=== PATIENT | female | born 1965 | race Caucasian/White ===

== ENCOUNTER 2016-07-26 16:44 | Emergency (ER) | payer MEDICARE, MEDICAID ==
[~2016-07-26 16:44] MED LIST: 'PARAFON FORTE500 M1 PO; ABILIFY10 MG PO; ALEVE220 MG PO; AMBIEN10 MG PO; AMBIEN5 MG PO; ANAPROX DS550 MG PO; ATIVAN0.5 MG PO; BACTRIM DS 8001 TA1 PO; BD ALCOHOL1 SWA TP; BUPROPION HCL150 MG PO; BUPROPION HCL75 MG PO; CATAFLAM50 MG PO; CLARITIN10 MG PO; CYANOCOBAL1000 MCG/M SC; CYCLOBENZAPRINE10 MG PO; CYMBALTA60 MG PO; DAYPRO600 M1 PO; EFFEXOR37.5 MG PO; EFFEXOR50 MG PO; EFFEXOR75 MG PO; FIORICET 325 MG1 TAB PO; FLAGYL500 M1 PO; FLAGYL500 MG PO; FLEXERIL10 MG PO; FLEXERIL5 MG PO; HYDROCODONE BIT1 T11 PO; IBU800 MG PO; KEFLEX500 MG PO; KLONOPIN1 MG PO; LEVOFLOXACIN500 MG PO; LOMOTIL 0.025 M1 TA1 PO; LOPRESSOR50 M1 PO; LOPRESSOR50 MG PO; LORAZEPAM2 MG PO; MACROBID100 M1 PO; MEDROL DOSEPAK4 MG PO; METOPROLOL SUCC50 M1 PO; METOPROLOL100 MG PO; METOPROLOL50 MG PO; MIDRIN (DURADR1 CAP PO; MOTRIN800 MG PO; NAPROSYN500 MG PO; NORCO 325 MG-51 TAB PO; PREDNISONE10 MG PO; PRILOSEC40 MG PO; PROPRANOLOL HCL60 M1 PO; REMERON15 MG PO; RESTORIL30 MG PO; RESTORIL7.5 MG PO; ROBAXIN750 MG PO; SOMA350 MG PO; TOPAMAX50 MG PO; TOPROL XL50 MG PO; TRAMADOL HCL50 MG PO; TRAMADOL HYDROC50 MG PO; TYLENOL W/ CODE1 TAB PO; TYLENOL500 MG PO; ULTRAM50 MG PO; VENLAFAXINE HY PO; VICODIN 5/500 505 MG PO; VICODIN 500 MG-1 TAB PO; VICODIN ES 7501 TAB PO; WELLBUTRIN75 MG PO; ZANTAC150 MG PO; ZITHROMAX Z PA250 MG PO; ZOFRAN ODT4 MG PO; ZOFRAN ODT4 MG SL; ZOFRAN4 MG PO; Zofran4 MG PO; [UNRECOGNIZED DRUG - OTHER] PO
[2016-07-26] MEDS ORDERED: HYDROCODONE BIT1 T11 PO (17:11)
[2016-07-26] MEDS ORDERED: PREDNISONE10 MG PO (17:11)
[2016-08-15] MEDS ORDERED: MIRTAZAPINE30 M2 PO (18:38)
[2016-08-15] MEDS ORDERED: DOXYCYCLINE100 M3 PO (18:40)
[2016-08-15] MEDS ORDERED: DIAZEPAM5 MG PO (18:40)
[2016-08-15] MEDS ORDERED: GABAPENTIN TAB600 MG PO (18:41)
[2016-08-15] MEDS ORDERED: Motrin,Rufen800 MG PO (19:53)
== END 2016-07-26 17:13 | disposition home or self-care (01) ==
LOC: ED 16:44
DX: M54.42 Lumbago with sciatica, left side (principal); Z98.51 Tubal ligation status; Z90.710 Acquired absence of both cervix and uterus; Z98.890 Other specified postprocedural states

== ENCOUNTER 2016-10-26 22:18 | Inpatient (IN) | payer MEDICARE ==
[~2016-10-26] VITALS: Ht 162.5 cm; Wt 92.1 kg
[~2016-10-26 22:18] MED LIST changes: +DIAZEPAM5 MG PO; +DOXYCYCLINE100 M3 PO; +GABAPENTIN TAB600 MG PO; +MIRTAZAPINE30 M2 PO; +Motrin,Rufen800 MG PO
[2016-10-26 22:39] VITALS: BP 127/88
[2016-10-26 23:11] LABS: BASO % 0.4 % (0.0-1.0); EOS # 0.2 10*3/uL (0.0-0.4); EOS % 2.2 % (1.0-4.0); HEMATOCRIT 39.1 % (37.0-47.0); HEMOGLOBIN 12.8 g/dl (12.0-16.0); LYMPH # 3.9 10*3/uL (1.3-4.4); LYMPH % 40.1 % (27.0-41.0); MEAN CELL VOLUME 92.7 fl (81.0-99.0); MEAN CORPUSCULAR HGB 30.3 pg (27.0-31.0); MEAN CORPUSCULAR HGB CONC 32.7 g/dl (33.0-37.0); MEAN PLATELET VOLUME 9.7 fl (9.6-12.3); MONO # 0.6 10*3/uL (0.1-1.0); MONO % 5.9 % (3.0-9.0); NEUT % 51.3 % (47.0-73.0); PLATELET COUNT AUTOMATED 273 10*3/uL (130-400); RED BLOOD COUNT 4.22 10*6/uL (4.10-5.10); RED CELL DISTRI WIDTH 12.9 % (0-14.5); WHITE BLOOD COUNT 9.7 10*3/uL (4.8-10.8)
[2016-10-26 23:26] LABS: ALBUMIN 3.3 gm/dl (3.1-4.5); ALKALINE PHOSPHATASE 146 U/L (45-117); BILIRUBIN, TOTAL 0.1 mg/dl (0.2-1.0); BUN 19 mg/dl (7-24); C-REACTIVE PROTEIN 0.85 MG/DL (0-0.3); CARBON DIOXIDE 26 mmol/L (21-32); CHLORIDE 107 mmol/L (98-107); EST GLOM FILT AFRICAN AMERICAN > 60 ml/min; GLUCOSE 108 mg/dL (65-99); MAGNESIUM 2.2 mg/dL (1.5-2.1); POTASSIUM 4.2 mmol/L (3.5-5.1); SGOT/AST 26 IU/L (3-35); SGPT/ALT 35 U/L (12-78); SODIUM 141 mmol/L (136-145); TOTAL PROTEIN 7.4 gm/dL (6.4-8.2)
[2016-10-27 02:30] VITALS: BP 120/80
[2016-10-27] MEDS ORDERED: REXULTI1 MG PO (04:37)
[2016-10-27 08:00] VITALS: BP 106/72
[2016-10-27 12:00] VITALS: BP 106/73
[2016-10-27 13:17] LABS: BILIRUBIN NEGATIVE (NEGATIVE); BLOOD 1+ (NEGATIVE); CLARITY SL CLOUDY (CLEAR); COLOR YELLOW (YELLOW); GLUCOSE NEGATIVE (NEGATIVE); KETONE NEGATIVE (NEGATIVE); LEUKO ESTERASE TRACE (NEGATIVE); NITRITE NEGATIVE (NEGATIVE); PROTEIN NEGATIVE (NEGATIVE); UROBILINOGEN 0.2 E.U./dl (0.2-1.0)
[2016-10-27 13:29] LABS: BACTERIA 1+; URINE REFLEX COMMENT YES (NO); WBC 0-2 wbc/hpf (0-5)
[2016-10-27 16:00] VITALS: BP 101/70
[2016-10-27 20:00] VITALS: BP 102/53
[2016-10-28] VITALS: BP 110/50
[2016-10-28 07:08] LABS: BASO % 0.6 % (0.0-1.0); EOS # 0.2 10*3/uL (0.0-0.4); EOS % 3.2 % (1.0-4.0); HEMATOCRIT 38.2 % (37.0-47.0); HEMOGLOBIN 12.3 g/dl (12.0-16.0); LYMPH # 2.7 10*3/uL (1.3-4.4); LYMPH % 37.7 % (27.0-41.0); MEAN CELL VOLUME 95.7 fl (81.0-99.0); MEAN CORPUSCULAR HGB 30.8 pg (27.0-31.0); MEAN CORPUSCULAR HGB CONC 32.2 g/dl (33.0-37.0); MEAN PLATELET VOLUME 9.9 fl (9.6-12.3); MONO # 0.4 10*3/uL (0.1-1.0); MONO % 5.1 % (3.0-9.0); NEUT # 3.9 10*3/uL (2.3-7.9); NEUT % 53.3 % (47.0-73.0); PLATELET COUNT AUTOMATED 216 10*3/uL (130-400); RED BLOOD COUNT 3.99 10*6/uL (4.10-5.10); WHITE BLOOD COUNT 7.3 10*3/uL (4.8-10.8)
[2016-10-28 07:36] LABS: HEMOGLOBIN A1c 5.4 % (4.8-5.6)
[2016-10-28 07:43] LABS: ALBUMIN 2.8 gm/dl (3.1-4.5); ALKALINE PHOSPHATASE 130 U/L (45-117); BILIRUBIN, TOTAL 0.2 mg/dl (0.2-1.0); BUN 17 mg/dl (7-24); CARBON DIOXIDE 23 mmol/L (21-32); CHLORIDE 110 mmol/L (98-107); CHOLESTEROL 224 mg/dL (<200); EST GLOM FILT AFRICAN AMERICAN > 60 ml/min; FREE T4 0.68 ng/dl (0.76-1.46); GLUCOSE 71 mg/dL (65-99); HDL CHOLESTEROL 47 mg/dl (40-60); LDL CHOLESTEROL 128 mg/dL (9-159); MAGNESIUM 1.7 mg/dL (1.5-2.1); PHOSPHOROUS 3.8 mg/dL (2.5-4.9); POTASSIUM 4.2 mmol/L (3.5-5.1); SGOT/AST 20 IU/L (3-35); SGPT/ALT 28 U/L (12-78); SODIUM 140 mmol/L (136-145); TOTAL PROTEIN 6.1 gm/dL (6.4-8.2); TRIGLYCERIDES 243 mg/dl (<150); VLDL CHOLESTEROL 49 mg/dL (6-40)
[2016-10-28 07:48] LABS: VITAMIN D, 25-HYDROXY 15.3 ng/mL (30-100)
[2016-10-28 07:57] LABS: FOLIC ACID > 24.00 ng/mL (>5.38)
[2016-10-28 08:00] VITALS: BP 114/72
[2016-10-28 12:00] VITALS: BP 123/85
[2016-10-28 16:00] VITALS: BP 124/84
[2016-10-28 20:00] VITALS: BP 143/87
[2016-10-29 00:15] VITALS: BP 140/58
[2016-10-29 08:00] VITALS: BP 138/89
[2016-10-29] MEDS ORDERED: D-1000 185 MG-11 TAB PO (08:21)
[2016-10-29] MEDS ORDERED: ACETAMINOPHEN-H1 TA2 PO (08:21)
[2016-10-29] MEDS ORDERED: SIMVASTATIN40 MG PO (08:21)
[2016-10-29] MEDS ORDERED: REGLAN5 MG PO (08:21)
[2016-10-29] MEDS ORDERED: B12,B-12,B 12500 MC1 PO (08:23)
== END 2016-10-29 10:10 | disposition home or self-care (01) | DRG 439 ==
LOC: ED 22:18 → 4E 10-27 01:19 → EDHOLD 10-27 01:19 → 4E 10-27 01:45
PROVIDERS: Emergency Medicine Emergency Medical Services; Internal Medicine
DX: K85.90 Acute pancreatitis without necrosis or infection, unspecified (principal); E44.0 Moderate protein-calorie malnutrition; F32.9 Major depressive disorder, single episode, unspecified; G43.909 Migraine, unspecified, not intractable, without status migrainosus; M54.16 Radiculopathy, lumbar region; E83.41 Hypermagnesemia; F41.9 Anxiety disorder, unspecified; E66.9 Obesity, unspecified; R06.82 Tachypnea, not elsewhere classified; E55.9 Vitamin D deficiency, unspecified; E53.8 Deficiency of other specified B group vitamins; I10 Essential (primary) hypertension; K59.00 Constipation, unspecified; Z90.49 Acquired absence of other specified parts of digestive tract; Z90.710 Acquired absence of both cervix and uterus; Z88.8 Allergy status to other drugs, medicaments and biological substances; Z82.49 Family history of ischemic heart disease and other diseases of the circulatory system; Z80.9 Family history of malignant neoplasm, unspecified; Z79.899 Other long term (current) drug therapy; Z68.33 Body mass index [BMI] 33.0-33.9, adult

== ENCOUNTER 2016-11-29 04:24 | Emergency (ER) | payer MEDICARE ==
[~2016-11-29] VITALS: Ht 165.1 cm; Wt 72.6 kg
[~2016-11-29 04:24] MED LIST changes: +ACETAMINOPHEN-H1 TA2 PO; +B12,B-12,B 12500 MC1 PO; +D-1000 185 MG-11 TAB PO; +REGLAN5 MG PO; +REXULTI1 MG PO; +SIMVASTATIN40 MG PO
[2016-11-29 04:50] LABS: BASO % 0.4 % (0.0-1.0); EOS # 0.4 10*3/uL (0.0-0.4); EOS % 4.2 % (1.0-4.0); HEMATOCRIT 39.6 % (37.0-47.0); HEMOGLOBIN 12.4 g/dl (12.0-16.0); LYMPH # 3.2 10*3/uL (1.3-4.4); LYMPH % 34.7 % (27.0-41.0); MEAN CELL VOLUME 92.3 fl (81.0-99.0); MEAN CORPUSCULAR HGB 28.9 pg (27.0-31.0); MEAN CORPUSCULAR HGB CONC 31.3 g/dl (33.0-37.0); MEAN PLATELET VOLUME 9.6 fl (9.6-12.3); MONO # 0.7 10*3/uL (0.1-1.0); MONO % 7.8 % (3.0-9.0); NEUT # 4.9 10*3/uL (2.3-7.9); NEUT % 52.7 % (47.0-73.0); PLATELET COUNT AUTOMATED 234 10*3/uL (130-400); RED BLOOD COUNT 4.29 10*6/uL (4.10-5.10); RED CELL DISTRI WIDTH 13.5 % (0-14.5); WHITE BLOOD COUNT 9.3 10*3/uL (4.8-10.8)
[2016-11-29 05:06] LABS: ALBUMIN 3.5 gm/dl (3.1-4.5); ALKALINE PHOSPHATASE 128 U/L (45-117); BILIRUBIN, DIRECT < 0.1 mg/dL (0.0-0.2); BILIRUBIN, TOTAL 0.2 mg/dl (0.2-1.0); BUN 10 mg/dl (7-24); CARBON DIOXIDE 25 mmol/L (21-32); CHLORIDE 109 mmol/L (98-107); EST GLOM FILT AFRICAN AMERICAN 59 ml/min; GLUCOSE 114 mg/dL (65-99); POTASSIUM 4.2 mmol/L (3.5-5.1); SGOT/AST 17 IU/L (3-35); SGPT/ALT 22 U/L (12-78); SODIUM 144 mmol/L (136-145); TOTAL PROTEIN 7.7 gm/dL (6.4-8.2)
[2016-11-29] MEDS ORDERED: PERCOCET 325 MG1 TA2 PO (06:38)
== END 2016-11-29 06:45 | disposition home or self-care (01) ==
LOC: ED 04:24
PROVIDERS: Emergency Medicine
DX: K85.90 Acute pancreatitis without necrosis or infection, unspecified (principal); E53.8 Deficiency of other specified B group vitamins; I10 Essential (primary) hypertension; G43.909 Migraine, unspecified, not intractable, without status migrainosus; E78.5 Hyperlipidemia, unspecified; E66.9 Obesity, unspecified; E55.9 Vitamin D deficiency, unspecified; Z98.890 Other specified postprocedural states; Z90.49 Acquired absence of other specified parts of digestive tract; Z90.711 Acquired absence of uterus with remaining cervical stump; Z98.51 Tubal ligation status; Z79.899 Other long term (current) drug therapy; Z88.5 Allergy status to narcotic agent

== ENCOUNTER 2016-12-18 22:22 | Emergency (ER) | payer MEDICARE ==
[~2016-12-18] VITALS: Ht 162.5 cm; Wt 88.5 kg
[~2016-12-18 22:22] MED LIST changes: +PERCOCET 325 MG1 TA2 PO
[2016-12-18] MEDS ORDERED: AUGMENTIN 875875 MG PO (22:32)
== END 2016-12-19 02:12 | disposition home or self-care (01) ==
LOC: ED 22:22
DX: S39.012A Strain of muscle, fascia and tendon of lower back, initial encounter (principal); G89.29 Other chronic pain; Z90.49 Acquired absence of other specified parts of digestive tract; E78.5 Hyperlipidemia, unspecified; I10 Essential (primary) hypertension; G43.909 Migraine, unspecified, not intractable, without status migrainosus; Z88.6 Allergy status to analgesic agent; Z79.899 Other long term (current) drug therapy

== ENCOUNTER 2017-01-03 11:39 | Emergency (ER) | payer MEDICARE ==
[~2017-01-03] VITALS: Ht 162.5 cm; Wt 83.9 kg
[~2017-01-03 11:39] MED LIST changes: +AUGMENTIN 875875 MG PO
[2017-01-03 12:31] LABS: BASO % 0.4 % (0.0-1.0); EOS # 0.1 10*3/uL (0.0-0.4); EOS % 0.9 % (1.0-4.0); HEMATOCRIT 45.4 % (37.0-47.0); HEMOGLOBIN 14.5 g/dl (12.0-16.0); LYMPH # 3.2 10*3/uL (1.3-4.4); LYMPH % 28.4 % (27.0-41.0); MEAN CELL VOLUME 89.9 fl (81.0-99.0); MEAN CORPUSCULAR HGB 28.7 pg (27.0-31.0); MEAN CORPUSCULAR HGB CONC 31.9 g/dl (33.0-37.0); MEAN PLATELET VOLUME 9.8 fl (9.6-12.3); MONO # 0.5 10*3/uL (0.1-1.0); MONO % 4.7 % (3.0-9.0); NEUT # 7.3 10*3/uL (2.3-7.9); NEUT % 65.4 % (47.0-73.0); PLATELET COUNT AUTOMATED 265 10*3/uL (130-400); RED BLOOD COUNT 5.05 10*6/uL (4.10-5.10); RED CELL DISTRI WIDTH 13.4 % (0-14.5); WHITE BLOOD COUNT 11.2 10*3/uL (4.8-10.8)
[2017-01-03 12:47] LABS: ALKALINE PHOSPHATASE 181 U/L (45-117); BILIRUBIN, TOTAL 0.3 mg/dl (0.2-1.0); BUN 9 mg/dl (7-24); CARBON DIOXIDE 27 mmol/L (21-32); CHLORIDE 101 mmol/L (98-107); EST GLOM FILT AFRICAN AMERICAN > 60 ml/min; GLUCOSE 111 mg/dL (65-99); POTASSIUM 5.2 mmol/L (3.5-5.1); SGOT/AST 31 IU/L (3-35); SGPT/ALT 49 U/L (12-78); SODIUM 141 mmol/L (136-145); TOTAL PROTEIN 8.4 gm/dL (6.4-8.2)
[2017-01-03 13:01] LABS: BILIRUBIN NEGATIVE (NEGATIVE); BLOOD TRACE-LYSED (NEGATIVE); CLARITY CLEAR (CLEAR); COLOR YELLOW (YELLOW); GLUCOSE NEGATIVE (NEGATIVE); KETONE NEGATIVE (NEGATIVE); LEUKO ESTERASE NEGATIVE (NEGATIVE); NITRITE NEGATIVE (NEGATIVE); PH 6.5 (5.0-9.0); PROTEIN NEGATIVE (NEGATIVE); UROBILINOGEN 0.2 E.U./dl (0.2-1.0)
[2017-01-03 13:11] LABS: URINE REFLEX COMMENT NO (NO)
[2017-01-03] MEDS ORDERED: FLAGYL500 MG PO (14:59)
== END 2017-01-03 15:09 | disposition home or self-care (01) ==
LOC: ED 11:39
PROVIDERS: Registered Nurse
DX: A09 Infectious gastroenteritis and colitis, unspecified (principal); Z90.49 Acquired absence of other specified parts of digestive tract; Z88.6 Allergy status to analgesic agent; Z79.899 Other long term (current) drug therapy

== ENCOUNTER 2018-02-05 18:53 | Emergency (ER) | payer MEDICARE, MEDICAID ==
[~2018-02-05] VITALS: Ht 162.5 cm; Wt 94.3 kg
[2018-02-05] MEDS ORDERED: MOBIC7.5 MG PO (21:31)
[2018-02-05] MEDS ORDERED: CYCLOBENZAPRINE10 MG PO (21:31)
== END 2018-02-05 21:31 | disposition home or self-care (01) ==
LOC: ED 18:53
DX: M54.32 Sciatica, left side (principal); I10 Essential (primary) hypertension; E78.2 Mixed hyperlipidemia; Z90.49 Acquired absence of other specified parts of digestive tract; Z90.710 Acquired absence of both cervix and uterus; Z79.899 Other long term (current) drug therapy; Z98.51 Tubal ligation status

== ENCOUNTER 2018-03-13 01:06 | Emergency (ER) | payer MEDICARE, MEDICAID ==
[~2018-03-13] VITALS: Ht 162.5 cm; Wt 94.3 kg
[~2018-03-13 01:06] MED LIST changes: +MOBIC7.5 MG PO
[2018-03-13 01:21] LABS: BASO # 0.1 10*3/uL (0.0-0.1); BASO % 0.7 % (0.0-1.0); EOS # 0.2 10*3/uL (0.0-0.4); EOS % 2.3 % (1.0-4.0); HEMATOCRIT 45.6 % (37.0-47.0); HEMOGLOBIN 15.2 g/dl (12.0-16.0); LYMPH # 4.1 10*3/uL (1.3-4.4); LYMPH % 46.2 % (27.0-41.0); MEAN CELL VOLUME 92.5 fl (81.0-99.0); MEAN CORPUSCULAR HGB 30.8 pg (27.0-31.0); MEAN CORPUSCULAR HGB CONC 33.3 g/dl (33.0-37.0); MEAN PLATELET VOLUME 10.8 fl (9.6-12.3); MONO # 0.5 10*3/uL (0.1-1.0); MONO % 5.5 % (3.0-9.0); NEUT # 4.1 10*3/uL (2.3-7.9); NEUT % 45.1 % (47.0-73.0); PLATELET COUNT AUTOMATED 250 10*3/uL (130-400); RED BLOOD COUNT 4.93 10*6/uL (4.10-5.10); RED CELL DISTRI WIDTH 12.2 % (0-14.5)
[2018-03-13 01:30] LABS: BILIRUBIN NEGATIVE (NEGATIVE); BLOOD 1+ (NEGATIVE); CLARITY CLEAR (CLEAR); COLOR YELLOW (YELLOW); GLUCOSE NEGATIVE (NEGATIVE); KETONE NEGATIVE (NEGATIVE); LEUKO ESTERASE 1+ (NEGATIVE); NITRITE NEGATIVE (NEGATIVE); SPECIFIC GRAVITY <= 1.005 (1.005-1.030); UROBILINOGEN 0.2 E.U./dl (0.2-1.0)
[2018-03-13 01:36] LABS: ACETAMINOPHEN (TYLENOL) < 2.0 ug/ml (10-30); ALBUMIN 4.1 gm/dl (3.1-4.5); ALKALINE PHOSPHATASE 127 U/L (45-117); BUN 14 mg/dl (7-24); CHLORIDE 108 mmol/L (98-107); CREATININE 1.04 mg/dL (0.55-1.02); POTASSIUM 4.4 mmol/L (3.5-5.1); SGOT/AST 36 IU/L (3-35); SGPT/ALT 39 U/L (12-78); SODIUM 143 mmol/L (136-145); TOTAL PROTEIN 8.5 gm/dL (6.4-8.2)
[2018-03-13 01:39] LABS: URINE AMPHETAMINES < 1000 (1000ng/ml); URINE BARBITURATES < 200 (200ng/ml); URINE BENZODIAZEPINES > 200 (200ng/ml); URINE CANNABINOIDS (THC) < 50 (50ng/ml); URINE COCAINE < 300 (300ng/ml); URINE METHADONE < 300 (300ng/ml); URINE OPIATES < 300 (300ng/ml); URINE PHENCYCLIDINE < 25 (25ng/ml)
== END 2018-03-13 08:56 | disposition home or self-care (01) ==
LOC: ED 01:06
PROVIDERS: Student in an Organized Health Care Education/Training Program
DX: F43.20 Adjustment disorder, unspecified (principal); F10.129 Alcohol abuse with intoxication, unspecified; F32.9 Major depressive disorder, single episode, unspecified; I10 Essential (primary) hypertension; G43.909 Migraine, unspecified, not intractable, without status migrainosus; E78.2 Mixed hyperlipidemia; E66.9 Obesity, unspecified; Z79.899 Other long term (current) drug therapy

== ENCOUNTER 2018-04-28 14:44 | Emergency (ER) | payer MEDICARE, MEDICAID ==
[~2018-04-28] VITALS: Ht 162.5 cm; Wt 93.0 kg
--- NOTE | ~2018-04-28 | EKG ---
[place], [place] ELECTROCARDIOGRAM REPORT NAME: NYA CHRISTOPHER UNIT #: [id number] ROOM: DOCTOR: EPIPHANY DRAFT REPORT BIRTHDATE: [birth year] [facility] Test Date: 2018-04-28 Test Time: 17:21:17 Pat Name: NYA CHRISTOPHER Department: Room: Gender: F Relationship Assoc: Shea Coyne : 1965 Requested By: SANA BELLA PA-C Order Number: [id number] Reading MD: Terell Marinelli MD Measurements Intervals [place] Rate: 81 P: 45 IA: 165 QRS: 38 QRSD: 89 T: 29 QT: 416 QTc: 483 Interpretive Statements Sinus rhythm Low voltage, precordial leads Nonspecific T abnormalities, anterior leads Electronically Signed On 04-29-2018 13:42:27 PDT by Terell Marinelli MD CM:EKGRPT:ELECTROCARDIOGRAM REPORT [id number] SANA BELLA PA-C EPIPHANY DRAFT REPORT SANA BELLA PA-C
[2018-04-28 16:27] LABS: BASO % 0.5 % (0.0-1.0); EOS # 0.1 10*3/uL (0.0-0.4); EOS % 1.4 % (1.0-4.0); HEMATOCRIT 44.3 % (37.0-47.0); HEMOGLOBIN 14.6 g/dl (12.0-16.0); LYMPH % 37.9 % (27.0-41.0); MEAN CELL VOLUME 95.1 fl (81.0-99.0); MEAN CORPUSCULAR HGB 31.3 pg (27.0-31.0); MEAN PLATELET VOLUME 10.5 fl (9.6-12.3); MONO # 0.6 10*3/uL (0.1-1.0); MONO % 8.2 % (3.0-9.0); NEUT % 51.7 % (47.0-73.0); PLATELET COUNT AUTOMATED 213 10*3/uL (130-400); RED BLOOD COUNT 4.66 10*6/uL (4.10-5.10); RED CELL DISTRI WIDTH 12.1 % (0-14.5); WHITE BLOOD COUNT 7.8 10*3/uL (4.8-10.8)
[2018-04-28 16:55] LABS: ALBUMIN 3.8 gm/dl (3.1-4.5); ALKALINE PHOSPHATASE 131 U/L (45-117); BUN 9 mg/dl (7-24); CHLORIDE 110 mmol/L (98-107); CREATININE 0.97 mg/dL (0.55-1.02); POTASSIUM 5.8 mmol/L (3.5-5.1); SGOT/AST 23 IU/L (3-35); SGPT/ALT 29 U/L (12-78); SODIUM 143 mmol/L (136-145); TOTAL PROTEIN 7.6 gm/dL (6.4-8.2)
[2018-04-28 19:22] LABS: POTASSIUM 3.9 mmol/L (3.5-5.1)
[2018-04-28] MEDS ORDERED: AMOXICILLIN500 M3 PO (19:51)
== END 2018-04-28 19:53 | disposition home or self-care (01) ==
LOC: ED 14:44
PROVIDERS: Physician Assistant
DX: J03.90 Acute tonsillitis, unspecified (principal); E87.5 Hyperkalemia; Z79.899 Other long term (current) drug therapy

== ENCOUNTER 2018-05-04 16:09 | Emergency (ER) | payer MEDICARE, MEDICAID ==
[~2018-05-04] VITALS: Ht 162.5 cm; Wt 93.0 kg
[~2018-05-04 16:09] MED LIST changes: +AMOXICILLIN500 M3 PO
[2018-05-04] MEDS ORDERED: TYLENOL PM EX-1 EACH PO (17:30)
== END 2018-05-04 17:33 | disposition home or self-care (01) ==
LOC: ED 16:09
DX: J04.0 Acute laryngitis (principal); J06.9 Acute upper respiratory infection, unspecified; R05 Cough; G89.29 Other chronic pain; I10 Essential (primary) hypertension; F41.9 Anxiety disorder, unspecified; G43.909 Migraine, unspecified, not intractable, without status migrainosus; E87.5 Hyperkalemia; Z90.49 Acquired absence of other specified parts of digestive tract

== ENCOUNTER 2018-12-17 19:18 | Emergency (ER) | payer OTHER, MEDICAID ==
[~2018-12-17] VITALS: Ht 162.5 cm; Wt 88.9 kg
[~2018-12-17 19:18] MED LIST changes: +EFFEXOR XR150 M1 PO; -EFFEXOR50 MG PO; +NORCO 7.5-3251 EACH PO; +PHENERGAN25 M3 PO; +TYLENOL PM EX-1 EACH PO
[2018-12-17 20:40] LABS: BASO % 0.5 % (0.0-1.0); EOS # 0.2 10*3/uL (0.0-0.4); EOS % 1.7 % (1.0-4.0); HEMATOCRIT 40.6 % (37.0-47.0); HEMOGLOBIN 13.5 g/dl (12.0-16.0); LYMPH # 3.9 10*3/uL (1.3-4.4); MEAN CELL VOLUME 92.7 fl (81.0-99.0); MEAN CORPUSCULAR HGB 30.8 pg (27.0-31.0); MEAN CORPUSCULAR HGB CONC 33.3 g/dl (33.0-37.0); MEAN PLATELET VOLUME 10.4 fl (9.6-12.3); MONO # 0.5 10*3/uL (0.1-1.0); MONO % 5.8 % (3.0-9.0); NEUT % 46.7 % (47.0-73.0); PLATELET COUNT AUTOMATED 234 10*3/uL (130-400); RED BLOOD COUNT 4.38 10*6/uL (4.10-5.10); RED CELL DISTRI WIDTH 12.3 % (0-14.5); WHITE BLOOD COUNT 8.7 10*3/uL (4.8-10.8)
[2018-12-17 20:54] LABS: ALBUMIN 3.6 gm/dl (3.1-4.5); ALKALINE PHOSPHATASE 117 U/L (45-117); BUN 19 mg/dl (7-24); CHLORIDE 107 mmol/L (98-107); LIPASE 332 U/L (73-393); POTASSIUM 4.1 mmol/L (3.5-5.1); SGOT/AST 18 IU/L (3-35); SGPT/ALT 42 U/L (12-78); SODIUM 140 mmol/L (136-145); TOTAL PROTEIN 7.6 gm/dL (6.4-8.2)
[2018-12-17 20:54] LABS: BILIRUBIN NEGATIVE (NEGATIVE); BLOOD TRACE-LYSED (NEGATIVE); CLARITY CLEAR (CLEAR); COLOR YELLOW (YELLOW); GLUCOSE NEGATIVE (NEGATIVE); KETONE NEGATIVE (NEGATIVE); LEUKO ESTERASE 1+ (NEGATIVE); NITRITE NEGATIVE (NEGATIVE); UROBILINOGEN 0.2 E.U./dl (0.2-1.0)
[2018-12-17 21:03] LABS: WBC 16-20 wbc/hpf (0-5)
[2018-12-17] MEDS ORDERED: SEPTDS PO (21:42)
[2019-02-11] MEDS ORDERED: PEPCID40 MG PO (23:21)
[2019-02-11] MEDS ORDERED: MACROBID100 M1 PO (23:49)
== END 2018-12-17 21:56 | disposition home or self-care (01) ==
LOC: ED 19:18
PROVIDERS: Physician Assistant
DX: N39.0 Urinary tract infection, site not specified (principal); R10.13 Epigastric pain; R11.2 Nausea with vomiting, unspecified; Z79.899 Other long term (current) drug therapy; Z87.19 Personal history of other diseases of the digestive system

== ENCOUNTER 2019-06-30 22:10 | Emergency (ER) | payer MEDICARE ==
[~2019-06-30] VITALS: Ht 162.5 cm; Wt 88.5 kg
[~2019-06-30 22:10] MED LIST changes: +PEPCID40 MG PO; +SEPTDS PO
[2019-07-01] MEDS ORDERED: TRAMADOL HCL50 MG PO (18:47)
[2019-07-01] MEDS ORDERED: IBU800 MG PO (18:47)
[2019-07-01] MEDS ORDERED: PREDNISONE20 M1 PO (18:47)
== END 2019-06-30 22:57 | disposition left against medical advice (07) ==
LOC: ED 22:10
DX: M54.5 Low back pain (principal); Z53.21 Procedure and treatment not carried out due to patient leaving prior to being seen by health care provider

== ENCOUNTER 2019-07-01 16:33 | Emergency (ER) | payer MEDICARE ==
[~2019-07-01] VITALS: Wt 79.4 kg
[2019-07-01] MEDS ORDERED: IBU800 MG PO (18:47)
[2019-07-01] MEDS ORDERED: TRAMADOL HCL50 MG PO (18:47)
[2019-07-01] MEDS ORDERED: PREDNISONE20 M1 PO (18:47)
== END 2019-07-01 18:47 | disposition home or self-care (01) ==
LOC: ED 16:33
DX: M54.5 Low back pain (principal); G89.29 Other chronic pain; I10 Essential (primary) hypertension; Z90.49 Acquired absence of other specified parts of digestive tract; Z79.899 Other long term (current) drug therapy

== ENCOUNTER 2019-12-22 19:15 | Inpatient (IN) | payer OTHER ==
[~2019-12-22] VITALS: Ht 162.5 cm; Wt 91.2 kg
[~2019-12-22 19:15] MED LIST changes: +PREDNISONE20 M1 PO
[2019-12-22 19:22] VITALS: BP 142/102
[2019-12-22 20:09] LABS: BASO # 0.1 10*3/uL (0.0-0.1); BASO % 0.4 % (0.0-1.0); EOS % 0.3 % (1.0-4.0); HEMATOCRIT 45.6 % (37.0-47.0); LYMPH # 4.2 10*3/uL (1.3-4.4); LYMPH % 34.4 % (27.0-41.0); MEAN CELL VOLUME 88.9 fl (81.0-99.0); MEAN CORPUSCULAR HGB CONC 33.8 g/dl (33.0-37.0); MONO # 0.7 10*3/uL (0.1-1.0); NEUT # 7.2 10*3/uL (2.3-7.9); NEUT % 58.6 % (47.0-73.0); PLATELET COUNT AUTOMATED 258 10*3/uL (130-400); RED BLOOD COUNT 5.13 10*6/uL (4.10-5.10); RED CELL DISTRI WIDTH 12.8 % (0-14.5); WHITE BLOOD COUNT 12.3 10*3/uL (4.8-10.8)
[2019-12-22 20:20] LABS: ALBUMIN 4.1 gm/dl (3.1-4.5); ALKALINE PHOSPHATASE 102 U/L (45-117); BUN 15 mg/dl (7-24); CHLORIDE 109 mmol/L (98-107); CREATININE 0.96 mg/dL (0.55-1.02); LIPASE 230 U/L (73-393); POTASSIUM 4.4 mmol/L (3.5-5.1); SGOT/AST 27 IU/L (3-35); SGPT/ALT 40 U/L (12-78); SODIUM 138 mmol/L (136-145); TOTAL PROTEIN 8.5 gm/dL (6.4-8.2)
[2019-12-22 20:22] LABS: ACT PARTIAL THROMBO TIME 25.4 SECONDS (20.0-32.1)
[2019-12-22 20:35] LABS: TROPONIN I < 0.015 ng/ml (<0.045)
--- NOTE | 2019-12-22 21:18 | NUR ---
PT REQUESTING HER SON BE UPDATED ON HER CONDITION, HOWEVER PT'S SON NOT IN LOBBY. PT MADE AWARE OF THIS, STATES SHE WILL CALL HIM AND IS AWARE OF NO VISITOR POLICY AT THIS TIME. ADMITTING MD SPEAKING WITH PT AT THIS TIME.
[2019-12-22 21:21] LABS: BILIRUBIN NEGATIVE (NEGATIVE); CLARITY CLEAR (CLEAR); COLOR YELLOW (YELLOW); GLUCOSE NEGATIVE (NEGATIVE); KETONE NEGATIVE (NEGATIVE)
[2019-12-22 21:22] LABS: BLOOD TRACE-INTACT (NEGATIVE); NITRITE NEGATIVE (NEGATIVE); UROBILINOGEN 0.2 E.U./dl (0.2-1.0)
[2019-12-22 21:23] LABS: LEUKO ESTERASE TRACE (NEGATIVE)
[2019-12-22 21:29] LABS: BACTERIA 1+
[2019-12-22 21:30] LABS: MUCOUS 1+
[2019-12-22 21:45] VITALS: BP 129/90
--- NOTE | 2019-12-22 21:45 | NUR ---
A 54, admitted to 5E, under the services of JOAN Mendoza DO with a diagnosis of ABDOMINAL PAIN. Chief complaint is ABDOMINAL PAIN. Patient arrived via bed from ER. Monitor applied. Initial assessment completed. Vital signs taken and recorded. JOAN MENDOZA DO notified of admission to the unit. Orders received. See assessment for past medical history, medications and allergies. Patient and/or family oriented to unit. [facility] visitation policy reviewed. Clothing/patient valuable form completed. FLO MARTINEZ
[2019-12-22] MEDS ORDERED: OMEPRAZOLE20 M3 PO (22:01)
[2019-12-22] MEDS ORDERED: METHYLPHENIDATE20 M2 PO (22:02)
[2019-12-22] MEDS ORDERED: BUSPAR15 MG PO (22:04)
--- NOTE | 2019-12-22 22:11 | NUR ---
PT MEDICATED WITH MORPHINE PER ORDER FOR COMPLAINTS OF SEVERE ABDOMINAL PAIN. WILL MONITOR EFFECTIVENESS
--- NOTE | 2019-12-22 22:40 | NUR ---
DR. RAYGOZA NOTIFIED OF COMPLETE MED REC
--- NOTE | 2019-12-22 23:05 | NUR ---
PT STATES "THAT TOOK THE EDGE OFF" MORPHINE EFFECTIVE
[2019-12-23] VITALS: BP 124/91
--- NOTE | 2019-12-23 01:00 | NUR ---
PT RESTING IN BED WITH EYES CLOSED AT THIS TIME.
--- NOTE | 2019-12-23 02:02 | NUR ---
PT MEDICATED WITH MORPHINE FOR COMPLAINTS OF ABDOMINAL PAIN. WILL MONITOR EFFECTIVENESS
--- NOTE | 2019-12-23 02:55 | NUR ---
PT STATES THE MORPHINE "HELPED" HER PAIN. RESTING COMFORTABLY AT THIS TIME, CALL LIGHT IN REACH
--- NOTE | 2019-12-23 05:47 | NUR ---
MORPHINE GIVEN PER ORDER FOR SEVERE 10/10 ABDOMINAL PAIN. WILL MONITOR EFFECTIVENESS.
[2019-12-23 06:31] LABS: ALBUMIN 3.3 gm/dl (3.1-4.5); ALKALINE PHOSPHATASE 90 U/L (45-117); BUN 12 mg/dl (7-24); CHLORIDE 111 mmol/L (98-107); CHOLESTEROL 263 mg/dL (<200); CREATININE 0.73 mg/dL (0.55-1.02); HDL CHOLESTEROL 49 mg/dl (40-60); LDL CHOLESTEROL 189 mg/dL (9-159); SGOT/AST 24 IU/L (3-35); SGPT/ALT 36 U/L (12-78); SODIUM 143 mmol/L (136-145); TRIGLYCERIDES 124 mg/dl (<150); VLDL CHOLESTEROL 25 mg/dL (6-40)
[2019-12-23 06:38] LABS: FREE T4 1.09 ng/dl (0.76-1.46); TOTAL PROTEIN 6.9 gm/dL (6.4-8.2)
--- NOTE | 2019-12-23 06:39 | NUR ---
DR. MCGRAW NOTIFIED OF CONSULT. STATES HE WILL SEE PT TODAY DURING ROUNDS.
--- NOTE | 2019-12-23 06:40 | NUR ---
PT STATES THAT THE PAIN MEDICINE HELPED A LITTLE.
[2019-12-23 06:41] LABS: BASO % 0.4 % (0.0-1.0); EOS # 0.1 10*3/uL (0.0-0.4); EOS % 0.8 % (1.0-4.0); HEMATOCRIT 42.1 % (37.0-47.0); LYMPH # 4.1 10*3/uL (1.3-4.4); LYMPH % 48.5 % (27.0-41.0); MEAN CORPUSCULAR HGB CONC 32.1 g/dl (33.0-37.0); MONO # 0.6 10*3/uL (0.1-1.0); MONO % 6.9 % (3.0-9.0); NEUT # 3.6 10*3/uL (2.3-7.9); NEUT % 43.2 % (47.0-73.0); PLATELET COUNT AUTOMATED 216 10*3/uL (130-400); RED CELL DISTRI WIDTH 13.2 % (0-14.5); WHITE BLOOD COUNT 8.4 10*3/uL (4.8-10.8)
[2019-12-23 06:47] LABS: MEAN CELL VOLUME 93.6 fl (81.0-99.0)
[2019-12-23 07:04] LABS: VITAMIN D, 25-HYDROXY 33.5 ng/mL (30-100)
[2019-12-23 08:00] VITALS: BP 140/83
--- NOTE | 2019-12-23 08:30 | NUR ---
Scudding Inspector in to talk to patient. Patient states lives at home alone with her family checking in on her. There are 0 steps in the home. Physician: Tyler Sutton Pharmacy: [facility] in [place] Home health services: none Patient's level of ADLs: INDEPENDENT Patient has working utilities: yes DME: none Follow-up physician's appointment after d/c: will be made by the hospitalist nurse director upon discharge Does patient want to access PORTAL?: no Discharge plan discussed with patient. She lives at home alone with her family checking in on her. She is independent in her ADLs and ambulation. Discussed home health care services and she denies any home needs at this time. When medically stable she will be discharged to home. She states her son will provide transportation on discharge. OLLIE MEADOWS
--- NOTE | 2019-12-23 08:47 | NUR ---
DR TORRES HERE AND EXAM PT RETO PAIN
--- NOTE | 2019-12-23 09:00 | NUR ---
DILUADID FOR 10/10 ABD PAIN
--- NOTE | 2019-12-23 09:05 | NUR ---
DR WHITLEY IN TO SEE PT
--- NOTE | 2019-12-23 09:40 | NUR ---
DR MCGRAW IN TO SEE PT
--- NOTE | 2019-12-23 09:58 | NUR ---
DILUADID 1 MG FOR 10/10 BELLY PAIN
--- NOTE | 2019-12-23 10:00 | NUR ---
FIRST DOSE OF DILUADID WAS INNEFECTIVE, 2nd dose already given
--- NOTE | 2019-12-23 10:58 | NUR ---
DILUADID EFFECTIVE PAIN DOWN TO 5/10 AND TOLERABLE
--- NOTE | 2019-12-23 11:30 | NUR ---
TO CT VIA WC
[2019-12-23 12:00] VITALS: BP 130/78
--- NOTE | 2019-12-23 13:39 | NUR ---
CT RESULTED-NO MAJOR PROCESSES COLO PREP STARTED PT FEELS GOOS RATES ABD DISCOMFORT AT 09/04
--- NOTE | 2019-12-23 15:10 | NUR ---
IN PT ROOM TO DO ASSESSMENT. PT COMPLAINS OF RLQ PAIN THAT RADIATES INTO HER BACK. PT IS AWARE THAT SHE IS NPO ASIDE FROM THE GOLYTELY THAT SHE NEEDS TO DRINK. CALL LIGHT WITHIN REACH, WILL CONTINUE TO MONITOR
--- NOTE | 2019-12-23 15:51 | NUR ---
Shift chart check completed.
[2019-12-23 16:00] VITALS: BP 119/75; BP 130/78
--- NOTE | 2019-12-23 17:31 | NUR ---
PRN ZOFRAN IV GIVEN FOR COMPLAINTS OF NAUSEA. WILL MONITOR FOR EFFECTIVENES
[2019-12-23 20:00] VITALS: BP 134/87
--- NOTE | 2019-12-23 20:25 | NUR ---
PATIENT HAS NOT DRANK MUCH OF COLO PREP. ENCOURAGE PATIENT TO DRINK MUCH SHE CAN. PATIENT STATED ABD HURTS WHEN SHE GOES.
--- NOTE | 2019-12-23 20:51 | NUR ---
PATIENT DRINKING COLO PREP
--- NOTE | 2019-12-23 21:10 | NUR ---
CALLED DR. MCGRAW TO CLARIFY WHEN PATIENT IS HAVING COLO/EGD AND HE SAID TOMORROW. ORDER RECEIVED TO STOP PREP AND TO RESTART COLO PREP TOMORROW, GIVE CLEAR LIQUIDS. NURSING MAGNETO REPAIRER AWARE OF THIS. PATIENT WAS TOLD ABOUT CURRENT ORDERS AND HAS STOPPED DRINKING COLO PREP AND UNDERSTANDS TEST WILL BE WEDNESDAY.
--- NOTE | 2019-12-23 21:23 | NUR ---
CALLED DR. FRIAS AND ORDERS RECEIVED FOR PAIN MED FOR H/A.
--- NOTE | 2019-12-23 21:56 | NUR ---
TORADOL GIVEN PER ORDER FOR HEADACHE PAIN AND ABD PAIN RATED "6". SEE AUG.
--- NOTE | 2019-12-23 22:50 | NUR ---
TORADOL HELPED WITH PAIN PER PT.
[2019-12-24] VITALS: BP 127/82; BP 133/91
--- NOTE | 2019-12-24 01:12 | NUR ---
24 HR chart check completed.
[2019-12-24 06:09] LABS: BASO % 0.3 % (0.0-1.0); EOS # 0.2 10*3/uL (0.0-0.4); EOS % 2.5 % (1.0-4.0); HEMATOCRIT 40.6 % (37.0-47.0); LYMPH # 2.8 10*3/uL (1.3-4.4); LYMPH % 43.3 % (27.0-41.0); MEAN CELL VOLUME 93.5 fl (81.0-99.0); MEAN CORPUSCULAR HGB 30.2 pg (27.0-31.0); MEAN CORPUSCULAR HGB CONC 32.3 g/dl (33.0-37.0); MEAN PLATELET VOLUME 9.9 fl (9.6-12.3); MONO # 0.4 10*3/uL (0.1-1.0); MONO % 6.8 % (3.0-9.0); NEUT % 46.9 % (47.0-73.0); PLATELET COUNT AUTOMATED 192 10*3/uL (130-400); RED BLOOD COUNT 4.34 10*6/uL (4.10-5.10); WHITE BLOOD COUNT 6.4 10*3/uL (4.8-10.8)
[2019-12-24 06:31] LABS: BUN 9 mg/dl (7-24); CHLORIDE 106 mmol/L (98-107); CREATININE 0.63 mg/dL (0.55-1.02); POTASSIUM 3.5 mmol/L (3.5-5.1); SODIUM 142 mmol/L (136-145)
[2019-12-24 08:00] VITALS: BP 131/78
--- NOTE | 2019-12-24 11:44 | NUR ---
NORCO FOR 20 HEADACHE
--- NOTE | 2019-12-24 11:47 | NUR ---
NORCO FOR 20 HEADACHE
[2019-12-24 12:00] VITALS: BP 135/91
[2019-12-24 16:00] VITALS: BP 120/70
--- NOTE | 2019-12-24 17:27 | NUR ---
PRN NORCO AND ZOFRAN FOR WERE GIVEN FOR PAIN OF 7/10 IN PT'S ABDOMEN. WILL REASSESS EFFECTIVENESS.
--- NOTE | 2019-12-24 18:27 | NUR ---
PRN NORCO AND ZOFRAN WAS EFFECTIVE. PT IS RESTING COMFORTABLY.
[2019-12-24 20:00] VITALS: BP 116/76
[2019-12-25] VITALS (7 sets, daily range): BP systolic 106–141; BP diastolic 51–88
--- NOTE | 2019-12-25 09:00 | NUR ---
General Technician in to see patient. No new needs or request at this time. She denies any home needs. When medically stable she will be discharged to home.
--- NOTE | 2019-12-25 09:19 | NUR ---
SPOKE TO SURGERY, PT IS SCHEDULED FOR NOON FOR EGD/COLO, METOPROLOL GIVEN WITH A SIP OF WATER.
--- NOTE | 2019-12-25 10:35 | NUR ---
sent to surgery for egd/colo via bed
--- NOTE | 2019-12-25 13:55 | NUR ---
PT SENT TO MRI VIA WHEELCHAIR
--- NOTE | 2019-12-25 15:49 | NUR ---
DR. FRIAS AWARE THAT PER DR. LUCIEN RODRIGUEZ FOR PATIENT TO BE DISCHARGED TODAY AND FOLLOW UP IN ONE WEEK
--- NOTE | 2019-12-25 16:58 | NUR ---
Discharge instructions reviewed with patient. Patient receptive and verbalizes understanding. Follow-up care arranged. Written instructions given to patient. PT IV REMOVED, NO QUESTIONS ON DISCHARGE AT THIS TIME. UNDERSTANDS TO MAKE APPOINTMENT WITH DR. MCGRAW OFFICE. ESTEVAN DINERO
--- NOTE | 2019-12-25 17:03 | NUR ---
PT DISCHARGE HOME, DECLINE WHEELCHAIR TO FRONT ENTERENCE FOR DISCHARGE
== END 2019-12-25 17:35 | disposition home or self-care (01) | DRG 439 ==
LOC: ED 19:15 → 5E 21:15 → EDHOLD 21:15 → 5E 21:29
PROVIDERS: Emergency Medicine Emergency Medical Services; Hospitalist; Internal Medicine; ADMIT Internal Medicine
PROC: 0DJD8ZZ Inspection of Lower Intestinal Tract, Via Natural or Artificial Opening Endoscopic (ICD-10-PCS; principal; 2019-12-25)
PROC: 0DB68ZX Excision of Stomach, Via Natural or Artificial Opening Endoscopic, Diagnostic (ICD-10-PCS; principal; 2019-12-25)
DX: K86.89 Other specified diseases of pancreas (principal); R65.10 Systemic inflammatory response syndrome (SIRS) of non-infectious origin without acute organ dysfunction; E87.8 Other disorders of electrolyte and fluid balance, not elsewhere classified; K29.70 Gastritis, unspecified, without bleeding; F32.9 Major depressive disorder, single episode, unspecified; G89.29 Other chronic pain; E78.2 Mixed hyperlipidemia; I10 Essential (primary) hypertension; K20.9 Esophagitis, unspecified; K57.30 Diverticulosis of large intestine without perforation or abscess without bleeding; R31.9 Hematuria, unspecified; N28.1 Cyst of kidney, acquired; F41.9 Anxiety disorder, unspecified; E53.8 Deficiency of other specified B group vitamins; R73.9 Hyperglycemia, unspecified; E55.9 Vitamin D deficiency, unspecified; G43.909 Migraine, unspecified, not intractable, without status migrainosus; M54.5 Low back pain; E66.9 Obesity, unspecified; Z68.36 Body mass index [BMI] 36.0-36.9, adult; Z90.49 Acquired absence of other specified parts of digestive tract; Z90.711 Acquired absence of uterus with remaining cervical stump; Z82.49 Family history of ischemic heart disease and other diseases of the circulatory system; Z83.3 Family history of diabetes mellitus; Z80.8 Family history of malignant neoplasm of other organs or systems; Z79.899 Other long term (current) drug therapy

== ENCOUNTER 2020-01-05 17:20 | Emergency (ER) | payer OTHER ==
[~2020-01-05 17:20] MED LIST changes: +BUSPAR15 MG PO; +METHYLPHENIDATE20 M2 PO; +OMEPRAZOLE20 M3 PO
[2020-01-05 18:21] LABS: BILIRUBIN NEGATIVE (NEGATIVE); BLOOD TRACE-INTACT (NEGATIVE); CLARITY CLEAR (CLEAR); COLOR YELLOW (YELLOW); GLUCOSE NEGATIVE (NEGATIVE); KETONE NEGATIVE (NEGATIVE); LEUKO ESTERASE NEGATIVE (NEGATIVE); NITRITE NEGATIVE (NEGATIVE); PH 7.5 (5.0-9.0); SPECIFIC GRAVITY 1.015 (1.005-1.030); UROBILINOGEN 0.2 E.U./dl (0.2-1.0)
[2020-01-05 18:26] LABS: BACTERIA TRACE; MUCOUS TRACE
[2020-01-05 18:27] LABS: BASO # 0.1 10*3/uL (0.0-0.1); BASO % 0.6 % (0.0-1.0); EOS # 0.1 10*3/uL (0.0-0.4); EOS % 0.9 % (1.0-4.0); HEMATOCRIT 42.4 % (37.0-47.0); LYMPH # 3.2 10*3/uL (1.3-4.4); LYMPH % 29.9 % (27.0-41.0); MEAN CELL VOLUME 92.4 fl (81.0-99.0); MEAN CORPUSCULAR HGB 30.3 pg (27.0-31.0); MEAN CORPUSCULAR HGB CONC 32.8 g/dl (33.0-37.0); MEAN PLATELET VOLUME 10.2 fl (9.6-12.3); MONO # 0.7 10*3/uL (0.1-1.0); MONO % 6.9 % (3.0-9.0); NEUT # 6.6 10*3/uL (2.3-7.9); NEUT % 61.5 % (47.0-73.0); PLATELET COUNT AUTOMATED 221 10*3/uL (130-400); RED BLOOD COUNT 4.59 10*6/uL (4.10-5.10); RED CELL DISTRI WIDTH 12.7 % (0-14.5); WHITE BLOOD COUNT 10.7 10*3/uL (4.8-10.8)
[2020-01-05 18:46] LABS: ALBUMIN 3.7 gm/dl (3.1-4.5); ALKALINE PHOSPHATASE 100 U/L (45-117); BUN 13 mg/dl (7-24); CHLORIDE 106 mmol/L (98-107); CREATININE 0.92 mg/dL (0.55-1.02); LIPASE 292 U/L (73-393); POTASSIUM 4.4 mmol/L (3.5-5.1); SGOT/AST 28 IU/L (3-35); SGPT/ALT 42 U/L (12-78); SODIUM 138 mmol/L (136-145); TOTAL PROTEIN 7.9 gm/dL (6.4-8.2)
== END 2020-01-05 19:36 | disposition home or self-care (01) ==
LOC: ED 17:20
PROVIDERS: Nurse Practitioner Family
DX: R10.9 Unspecified abdominal pain (principal); Z79.899 Other long term (current) drug therapy; Z90.710 Acquired absence of both cervix and uterus; Z90.49 Acquired absence of other specified parts of digestive tract

== ENCOUNTER 2020-06-10 14:46 | Emergency (ER) | payer OTHER | END 2020-06-10 17:20 | disposition home or self-care (01) | LOC: ED 14:46 | DX: R05 Cough (principal); Z20.828 Contact with and (suspected) exposure to other viral communicable diseases; R09.81 Nasal congestion; Z79.899 Other long term (current) drug therapy ==

== ENCOUNTER 2020-10-08 18:18 | Emergency (ER) | payer OTHER ==
[~2020-10-08] VITALS: Ht 162.5 cm; Wt 88.5 kg
[2020-10-08 19:12] LABS: BASO # 0.1 10*3/uL (0.0-0.1); BASO % 0.5 % (0.0-1.0); EOS # 0.1 10*3/uL (0.0-0.4); EOS % 1.1 % (1.0-4.0); HEMATOCRIT 45.8 % (37.0-47.0); LYMPH # 3.7 10*3/uL (1.3-4.4); LYMPH % 36.9 % (27.0-41.0); MEAN CELL VOLUME 93.7 fl (81.0-99.0); MEAN CORPUSCULAR HGB 30.3 pg (27.0-31.0); MEAN CORPUSCULAR HGB CONC 32.3 g/dl (33.0-37.0); MEAN PLATELET VOLUME 9.6 fl (9.6-12.3); MONO # 0.6 10*3/uL (0.1-1.0); MONO % 6.2 % (3.0-9.0); NEUT # 5.6 10*3/uL (2.3-7.9); NEUT % 55.2 % (47.0-73.0); PLATELET COUNT AUTOMATED 293 10*3/uL (130-400); RED BLOOD COUNT 4.89 10*6/uL (4.10-5.10); RED CELL DISTRI WIDTH 12.4 % (0-14.5); WHITE BLOOD COUNT 10.1 10*3/uL (4.8-10.8)
[2020-10-08 19:28] LABS: ALBUMIN 4.1 gm/dl (3.1-4.5); ALKALINE PHOSPHATASE 146 U/L (45-117); BUN 10 mg/dl (7-24); CHLORIDE 100 mmol/L (98-107); CREATININE 0.94 mg/dL (0.55-1.02); LIPASE 210 U/L (73-393); POTASSIUM 4.3 mmol/L (3.5-5.1); SGOT/AST 30 IU/L (3-35); SGPT/ALT 60 U/L (12-78); SODIUM 139 mmol/L (136-145); TOTAL PROTEIN 8.4 gm/dL (6.4-8.2)
== END 2020-10-08 20:42 | disposition home or self-care (01) ==
LOC: ED 18:18
PROVIDERS: Internal Medicine
DX: R10.31 Right lower quadrant pain (principal); I10 Essential (primary) hypertension; Z79.899 Other long term (current) drug therapy; Z90.49 Acquired absence of other specified parts of digestive tract; Z90.711 Acquired absence of uterus with remaining cervical stump; Z98.890 Other specified postprocedural states

== ENCOUNTER 2020-11-26 21:20 | Emergency (ER) | payer OTHER ==
[~2020-11-26] VITALS: Ht 165.1 cm; Wt 90.7 kg
[2020-11-26 21:50] LABS: BILIRUBIN Negative (Negative); BLOOD 1+ (Negative); CLARITY Clear (Clear); COLOR Yellow (Yellow); GLUCOSE Negative (Negative); KETONE Negative (Negative); LEUKO ESTERASE Negative (Negative); NITRITE Negative (Negative); UROBILINOGEN 0.2 E.U./dl (0.0-1.0)
[2020-11-26 21:59] LABS: BACTERIA TRACE; WBC 0-2 wbc/hpf (0-5)
[2020-11-26 22:22] LABS: HEMATOCRIT 43.3 % (37.0-47.0); MEAN CELL VOLUME 91.5 fl (81.0-99.0); MEAN CORPUSCULAR HGB 30.4 pg (27.0-31.0); MEAN CORPUSCULAR HGB CONC 33.3 g/dl (33.0-37.0); MEAN PLATELET VOLUME 10.8 fl (9.6-12.3); PLATELET COUNT AUTOMATED 240 10*3/uL (130-400); RED BLOOD COUNT 4.73 10*6/uL (4.10-5.10); RED CELL DISTRI WIDTH 12.1 % (0-14.5); WHITE BLOOD COUNT 8.4 10*3/uL (4.8-10.8)
[2020-11-26 22:39] LABS: ALBUMIN 3.6 gm/dl (3.1-4.5); CREATININE 1.2 mg/dL (0.55-1.02); TOTAL PROTEIN 8.4 gm/dL (6.4-8.2)
[2020-11-26 22:49] LABS: ATYPICAL LYMPHS 5 % (0-0); TOTAL CELLS COUNTED 100 #CELLS
[2020-11-26 22:50] LABS: PLATELET SUFFICIENCY NORMAL (NORMAL)
[2020-11-27] MEDS ORDERED: CYCLOBENZAPRINE10 MG PO (00:26)
[2020-11-27] MEDS ORDERED: PERCOCET 5-3251 EACH PO (00:26)
[2020-11-27] MEDS ORDERED: PREDNISONE20 M1 PO (00:26)
== END 2020-11-27 00:47 | disposition home or self-care (01) ==
LOC: ED 21:20
PROVIDERS: Emergency Medicine
DX: R10.9 Unspecified abdominal pain (principal); M25.559 Pain in unspecified hip; M54.30 Sciatica, unspecified side; Z79.899 Other long term (current) drug therapy; Z90.711 Acquired absence of uterus with remaining cervical stump; Z98.890 Other specified postprocedural states; Z90.49 Acquired absence of other specified parts of digestive tract

== ENCOUNTER 2021-01-26 06:37 | Inpatient (IN) | payer OTHER ==
[~2021-01-26] VITALS: Ht 162.5 cm; Wt 91.2 kg
[~2021-01-26 06:37] MED LIST changes: +PERCOCET 5-3251 EACH PO
[2021-01-26 06:38] VITALS: BP 138/90
[2021-01-26 07:51] LABS: BASO % 0.3 % (0.0-1.0); EOS # 0.1 10*3/uL (0.0-0.4); EOS % 0.5 % (1.0-4.0); HEMATOCRIT 46.7 % (37.0-47.0); LYMPH # 1.7 10*3/uL (1.3-4.4); LYMPH % 14.9 % (27.0-41.0); MEAN CELL VOLUME 91.2 fl (81.0-99.0); MEAN CORPUSCULAR HGB 30.3 pg (27.0-31.0); MEAN CORPUSCULAR HGB CONC 33.2 g/dl (33.0-37.0); MEAN PLATELET VOLUME 10.1 fl (9.6-12.3); MONO # 0.7 10*3/uL (0.1-1.0); MONO % 5.9 % (3.0-9.0); NEUT % 78.2 % (47.0-73.0); PLATELET COUNT AUTOMATED 255 10*3/uL (130-400); RED BLOOD COUNT 5.12 10*6/uL (4.10-5.10); RED CELL DISTRI WIDTH 12.2 % (0-14.5); WHITE BLOOD COUNT 11.4 10*3/uL (4.8-10.8)
[2021-01-26 07:58] VITALS: BP 132/84
[2021-01-26 08:05] LABS: BILIRUBIN Negative (Negative); BLOOD Trace-Lysed (Negative); CLARITY Clear (Clear); COLOR Yellow (Yellow); GLUCOSE Negative (Negative); KETONE Negative (Negative); LEUKO ESTERASE 1+ (Negative); NITRITE Negative (Negative); SPECIFIC GRAVITY 1.025 (1.001-1.030); UROBILINOGEN 0.2 E.U./dl (0.0-1.0)
[2021-01-26 08:11] LABS: ALBUMIN 3.9 gm/dl (3.1-4.5); ALKALINE PHOSPHATASE 106 U/L (45-117); BUN 23 mg/dl (7-24); CHLORIDE 105 mmol/L (98-107); CREATININE 0.98 mg/dL (0.55-1.02); LIPASE 1142 U/L (73-393); POTASSIUM 4.3 mmol/L (3.5-5.1); SGOT/AST 24 IU/L (3-35); SGPT/ALT 34 U/L (12-78); SODIUM 138 mmol/L (136-145); TOTAL PROTEIN 7.9 gm/dL (6.4-8.2)
[2021-01-26 08:12] LABS: URINE AMPHETAMINES < 1000 (1000ng/ml); URINE BARBITURATES < 200 (200ng/ml); URINE BENZODIAZEPINES < 200 (200ng/ml); URINE CANNABINOIDS (THC) < 50 (50ng/ml); URINE COCAINE < 300 (300ng/ml); URINE METHADONE < 300 (300ng/ml); URINE OPIATES < 300 (300ng/ml); URINE PHENCYCLIDINE < 25 (25ng/ml)
[2021-01-26 08:12] LABS: ETHYL ALCOHOL < 3.0 mg/dl (<3)
[2021-01-26 08:16] LABS: BACTERIA 1+; MUCOUS 1+
[2021-01-26 10:39] VITALS: BP 139/84
[2021-01-26 12:00] VITALS: BP 126/76
[2021-01-26 16:00] VITALS: BP 117/70
[2021-01-26 20:00] VITALS: BP 130/78
[2021-01-27] VITALS: BP 112/73
[2021-01-27 06:11] LABS: ALBUMIN 3.2 gm/dl (3.1-4.5); ALKALINE PHOSPHATASE 85 U/L (45-117); BUN 14 mg/dl (7-24); CHLORIDE 113 mmol/L (98-107); CHOLESTEROL 213 mg/dL (<200); CREATININE 0.71 mg/dL (0.55-1.02); FREE T4 0.69 ng/dl (0.76-1.46); LDL CHOLESTEROL 125 mg/dL (9-159); POTASSIUM 3.8 mmol/L (3.5-5.1); SGOT/AST 28 IU/L (3-35); SGPT/ALT 31 U/L (12-78); SODIUM 136 mmol/L (136-145); TOTAL PROTEIN 6.5 gm/dL (6.4-8.2); TRIGLYCERIDES 226 mg/dl (<150)
[2021-01-27 06:44] LABS: ACT PARTIAL THROMBO TIME 25.8 SECONDS (20.0-32.1)
[2021-01-27 07:07] LABS: BASO % 0.2 % (0.0-1.0); EOS # 0.2 10*3/uL (0.0-0.4); EOS % 4.2 % (1.0-4.0); HEMATOCRIT 40.1 % (37.0-47.0); LYMPH % 57.1 % (27.0-41.0); MEAN CORPUSCULAR HGB CONC 30.9 g/dl (33.0-37.0); MEAN PLATELET VOLUME 10.6 fl (9.6-12.3); MONO # 0.4 10*3/uL (0.1-1.0); MONO % 7.1 % (3.0-9.0); NEUT # 1.6 10*3/uL (2.3-7.9); NEUT % 31.2 % (47.0-73.0); PLATELET COUNT AUTOMATED 199 10*3/uL (130-400); RED BLOOD COUNT 4.14 10*6/uL (4.10-5.10); RED CELL DISTRI WIDTH 12.6 % (0-14.5); WHITE BLOOD COUNT 5.2 10*3/uL (4.8-10.8)
[2021-01-27 07:13] LABS: MEAN CELL VOLUME 96.9 fl (81.0-99.0)
[2021-01-27 07:26] LABS: VITAMIN D, 25-HYDROXY 61.9 ng/mL (30-100)
[2021-01-27 08:00] VITALS: BP 90/52
[2021-01-27 12:00] VITALS: BP 124/66
[2021-01-27 16:00] VITALS: BP 135/81
[2021-01-27 20:00] VITALS: BP 138/60; BP 142/82
[2021-01-28] VITALS: BP 125/79
[2021-01-28 04:00] VITALS: BP 107/69
[2021-01-28 05:59] LABS: BUN 10 mg/dl (7-24); CHLORIDE 108 mmol/L (98-107); CREATININE 0.69 mg/dL (0.55-1.02); LIPASE 196 U/L (73-393); POTASSIUM 3.7 mmol/L (3.5-5.1); SODIUM 140 mmol/L (136-145)
[2021-01-28 08:00] VITALS: BP 115/84
[2021-01-28 12:00] VITALS: BP 118/74
[2021-01-28] MEDS ORDERED: FLAGYL500 MG PO (12:20)
[2021-01-28] MEDS ORDERED: CIPRO500 MG PO (12:20)
[2021-01-28] MEDS ORDERED: PERCOCET 5-3251 EACH PO (16:16)
== END 2021-01-28 13:31 | disposition home or self-care (01) | DRG 440 ==
LOC: ED 06:37 → 4E 08:51 → EDHOLD 08:51 → 4E 10:00
PROVIDERS: Emergency Medicine; Internal Medicine; Student in an Organized Health Care Education/Training Program; ADMIT Emergency Medicine; ATTEND Emergency Medicine
DX: K85.90 Acute pancreatitis without necrosis or infection, unspecified (principal); F32.9 Major depressive disorder, single episode, unspecified; I10 Essential (primary) hypertension; R73.9 Hyperglycemia, unspecified; E83.41 Hypermagnesemia; F41.9 Anxiety disorder, unspecified; G89.29 Other chronic pain; E78.2 Mixed hyperlipidemia; K86.1 Other chronic pancreatitis; G43.909 Migraine, unspecified, not intractable, without status migrainosus; M54.5 Low back pain; K57.90 Diverticulosis of intestine, part unspecified, without perforation or abscess without bleeding; E66.9 Obesity, unspecified; Z68.34 Body mass index [BMI] 34.0-34.9, adult; Z90.49 Acquired absence of other specified parts of digestive tract; Z86.16 Personal history of COVID-19; Z90.711 Acquired absence of uterus with remaining cervical stump; Z82.49 Family history of ischemic heart disease and other diseases of the circulatory system; Z83.3 Family history of diabetes mellitus; Z80.8 Family history of malignant neoplasm of other organs or systems; Z79.899 Other long term (current) drug therapy

== ENCOUNTER 2021-04-01 23:19 | Emergency (ER) | payer OTHER ==
[~2021-04-01] VITALS: Ht 160 cm; Wt 96.8 kg
[~2021-04-01 23:19] MED LIST changes: +CIPRO500 MG PO
[2021-04-02] MEDS ORDERED: DIPHENHYDRAMINE50 M1 PO (01:41)
== END 2021-04-02 02:01 | disposition home or self-care (01) ==
LOC: ED 23:19
DX: T63.441A Toxic effect of venom of bees, accidental (unintentional), initial encounter (principal); I10 Essential (primary) hypertension; E66.9 Obesity, unspecified; Z79.899 Other long term (current) drug therapy; Y92.89 Other specified places as the place of occurrence of the external cause

== ENCOUNTER 2022-03-17 17:27 | Emergency (ER) | payer MEDICARE ==
[~2022-03-17 17:27] MED LIST changes: +DIPHENHYDRAMINE50 M1 PO
== END 2022-03-17 18:13 | disposition left against medical advice (07) ==
LOC: ED 17:27
DX: R10.9 Unspecified abdominal pain (principal); Z53.21 Procedure and treatment not carried out due to patient leaving prior to being seen by health care provider

== ENCOUNTER 2022-04-17 15:06 | Emergency (ER) | payer MEDICARE ==
[~2022-04-17] VITALS: Ht 162.5 cm; Wt 91.2 kg
== END 2022-04-17 16:47 | disposition left against medical advice (07) ==
LOC: ED 15:06
DX: Z53.21 Procedure and treatment not carried out due to patient leaving prior to being seen by health care provider (principal)

== ENCOUNTER → 2022-07-15 | Outpatient (CLI) | payer MEDICARE | END | disposition home or self-care (01) | LOC: MAMMO 12:46 | PROVIDERS: ATTEND Physician Assistant | DX: N64.59 Other signs and symptoms in breast (principal); N63.0 Unspecified lump in unspecified breast; R92.2 Inconclusive mammogram ==

== ENCOUNTER 2022-09-05 07:33 | Emergency (ER) | payer MEDICARE ==
[~2022-09-05] VITALS: Ht 162.5 cm; Wt 90.7 kg
[2022-09-05] MEDS ORDERED: IBU800 M2 PO (08:13)
[2022-09-05] MEDS ORDERED: AVPAK AZITHROM250 M1 PO (08:13)
[2022-09-05] MEDS ORDERED: REGLAN10 M1 PO (08:13)
[2022-09-05] MEDS ORDERED: ZYRTEC10 M2 PO (08:13)
== END 2022-09-05 08:45 | disposition home or self-care (01) ==
LOC: ED 07:33
DX: J32.9 Chronic sinusitis, unspecified (principal); R51.9 Headache, unspecified; I10 Essential (primary) hypertension; F32.A Depression, unspecified; Z90.49 Acquired absence of other specified parts of digestive tract; Z90.711 Acquired absence of uterus with remaining cervical stump; Z98.890 Other specified postprocedural states

== ENCOUNTER 2023-12-30 15:01 | Emergency (ER) | payer MEDICARE, MEDICAID ==
[~2023-12-30] VITALS: Ht 162.5 cm; Wt 99.3 kg
[~2023-12-30 15:01] MED LIST changes: +AVPAK AZITHROM250 M1 PO; +IBU800 M2 PO; +REGLAN10 M1 PO; +ZYRTEC10 M2 PO
[2023-12-30] MEDS ORDERED: Rabies Immune Globulin 300 UNIT/2 ML VIAL IM ONE ×2 (16:00→16:15)
[2023-12-30] MEDS ORDERED: Tdap Vaccine 0.5 ML SYR (Adult Vaccine) IM ONE (16:00)
[2023-12-30] MEDS ORDERED: Rabies Vaccine 1 ML VIAL IM ONE (16:00)
[2023-12-30] MEDS ORDERED: Amoxicillin/Clavulanate Pota 875 MG TAB PO ONE ×2 (16:00→17:25)
[2023-12-30] MEDS ORDERED: Acetaminophen/Oxycodone 5 MG/325 MG TABLET PO ONE (16:05)
[2023-12-30] MEDS ORDERED: Rabies Immune Globulin 150O UNIT/10 ML IM ONE (16:20)
[2023-12-30] MEDS ORDERED: PROBIOTIC1 EAC7 PO (17:32)
[2023-12-30] MEDS ORDERED: AMOX-CLAV 875-1 EACH PO (17:32)
== END 2023-12-30 17:37 | disposition home or self-care (01) ==
LOC: ED 15:01
DX: S51.852A Open bite of left forearm, initial encounter (principal); S51.851A Open bite of right forearm, initial encounter; I10 Essential (primary) hypertension; F32.A Depression, unspecified; Z90.49 Acquired absence of other specified parts of digestive tract; Z90.711 Acquired absence of uterus with remaining cervical stump; Z98.890 Other specified postprocedural states; W54.0XXA Bitten by dog, initial encounter; Y93.02 Activity, running; Y92.096 Garden or yard of other non-institutional residence as the place of occurrence of the external cause; Y99.8 Other external cause status

== ENCOUNTER 2024-01-01 11:56 | Emergency (ER) | payer MEDICARE, MEDICAID ==
[~2024-01-01] VITALS: Ht 162.5 cm; Wt 94.3 kg
[~2024-01-01 11:56] MED LIST changes: +AMOX-CLAV 875-1 EACH PO; +PROBIOTIC1 EAC7 PO
[2024-01-01] MEDS ORDERED: BUSPAR15 MG PO (12:16)
[2024-01-01] MEDS ORDERED: RITALIN10 MG PO (12:17)
[2024-01-01] MEDS ORDERED: Rabies Vaccine 1 ML VIAL IM ONE (12:30)
[2024-01-01] MEDS ORDERED: Ketorolac Tromethamine 30 MG/ML VIAL IM ONE (12:50)
[2024-01-01 13:08] LABS: BASO % 0.4 % (0.0-1.0); EOS # 0.1 10*3/uL (0.0-0.4); EOS % 1.2 % (1.0-4.0); HEMATOCRIT 42.3 % (37.0-47.0); LYMPH # 2.3 10*3/uL (1.3-4.4); LYMPH % 29.8 % (27.0-41.0); MEAN CORPUSCULAR HGB 30.8 pg (27.0-31.0); MEAN CORPUSCULAR HGB CONC 33.1 g/dl (33.0-37.0); MEAN PLATELET VOLUME 9.8 fl (9.6-12.3); MONO # 0.5 10*3/uL (0.1-1.0); MONO % 5.8 % (3.0-9.0); NEUT # 4.9 10*3/uL (2.3-7.9); NEUT % 62.5 % (47.0-73.0); PLATELET COUNT AUTOMATED 221 10*3/uL (130-400); RED BLOOD COUNT 4.55 10*6/uL (4.10-5.10); RED CELL DISTRI WIDTH 12.1 % (0-14.5); WHITE BLOOD COUNT 7.8 10*3/uL (4.8-10.8)
[2024-01-01 13:31] LABS: ALKALINE PHOSPHATASE 106 U/L (46-116); BUN 7 mg/dl (9-23); CHLORIDE 109 mmol/L (98-107); POTASSIUM 4.3 mmol/L (3.4-5.1); SGPT/ALT 25 U/L (5-49); TOTAL PROTEIN 7.3 gm/dL (6.0-8.0)
[2024-01-01] MEDS ORDERED: SODIUM CHLORIDE 0.9% 1,000 ML IV ONE (13:55)
[2024-01-01] MEDS ORDERED: Piperacillin Sodium/Tazobact 50 ML IV ONE (13:55)
[2024-01-01] MEDS ORDERED: Clindamycin Phosphate 50 ML IV ONE (14:00)
== END 2024-01-01 15:01 | disposition home or self-care (01) ==
LOC: ED 11:56
PROVIDERS: Internal Medicine
DX: S41.152D Open bite of left upper arm, subsequent encounter (principal); L03.114 Cellulitis of left upper limb; Z23 Encounter for immunization; I10 Essential (primary) hypertension; F32.A Depression, unspecified; Z90.49 Acquired absence of other specified parts of digestive tract; Z90.711 Acquired absence of uterus with remaining cervical stump; Z98.890 Other specified postprocedural states; W54.0XXD Bitten by dog, subsequent encounter

== ENCOUNTER 2024-01-07 06:55 | Emergency (ER) | payer OTHER, MEDICAID ==
[~2024-01-07] VITALS: Ht 162.5 cm; Wt 93.0 kg
[~2024-01-07 06:55] MED LIST changes: +RITALIN10 MG PO
[2024-01-07] MEDS ORDERED: Rabies Vaccine 1 ML VIAL IM ONE (07:15)
== END 2024-01-07 07:46 | disposition home or self-care (01) ==
LOC: ED 06:55
DX: Z23 Encounter for immunization (principal); I10 Essential (primary) hypertension; F32.A Depression, unspecified; Z90.49 Acquired absence of other specified parts of digestive tract; Z90.711 Acquired absence of uterus with remaining cervical stump; Z98.890 Other specified postprocedural states

== ENCOUNTER 2024-07-23 10:21 | Emergency (ER) | payer OTHER, MEDICAID ==
[~2024-07-23] VITALS: Wt 93.0 kg
[2024-07-23 11:54] LABS: BILIRUBIN Negative (Negative); BLOOD Trace-Lysed (Negative); CLARITY Clear (Clear); COLOR Yellow (Yellow); GLUCOSE Negative (Negative); KETONE Negative (Negative); LEUKO ESTERASE Negative (Negative); NITRITE Negative (Negative); PH 5.5 (4.5-8.0); SPECIFIC GRAVITY 1.015 (1.001-1.030); UROBILINOGEN 0.2 E.U./dl (0.0-1.0)
[2024-07-23 12:00] LABS: BASO % 0.5 % (0.0-1.0); EOS # 0.1 10*3/uL (0.0-0.4); EOS % 0.9 % (1.0-4.0); HEMATOCRIT 46.7 % (37.0-47.0); MEAN CELL VOLUME 90.9 fl (81.0-99.0); MEAN CORPUSCULAR HGB 30.2 pg (27.0-31.0); MEAN CORPUSCULAR HGB CONC 33.2 g/dl (33.0-37.0); MEAN PLATELET VOLUME 9.8 fl (9.6-12.3); MONO # 0.5 10*3/uL (0.1-1.0); NEUT # 4.5 10*3/uL (2.3-7.9); NEUT % 55.5 % (47.0-73.0); PLATELET COUNT AUTOMATED 257 10*3/uL (130-400); RED BLOOD COUNT 5.14 10*6/uL (4.10-5.10); RED CELL DISTRI WIDTH 12.1 % (0-14.5); WHITE BLOOD COUNT 8.2 10*3/uL (4.8-10.8)
[2024-07-23 12:06] LABS: WBC 0-2 wbc/hpf (0-5)
[2024-07-23 12:07] LABS: BACTERIA 1+; EPITHELIAL CELLS 0-2
[2024-07-23] MEDS ORDERED: HYDROmorphONE Hydrochloride 0.5 MG/0.5 ML SYRINGE IV ONE ×2 (12:10→13:40)
[2024-07-23] MEDS ORDERED: Ondansetron Hydrochloride 4 MG/2 ML VIAL IV ONE (12:15)
[2024-07-23] MEDS ORDERED: SODIUM CHLORIDE 0.9% 1,000 ML IV ONE (12:15)
[2024-07-23] MEDS ORDERED: IOHEXOL 300 MG/ML 100 ML VIAL IV ONE (12:20)
[2024-07-23 12:22] LABS: ALKALINE PHOSPHATASE 115 U/L (46-116); BUN 11 mg/dl (9-23); CHLORIDE 99 mmol/L (98-107); LIPASE 62 U/L (12-53); POTASSIUM 3.9 mmol/L (3.4-5.1); SGPT/ALT 30 U/L (5-49); TOTAL PROTEIN 8.3 gm/dL (6.0-8.0)
[2024-07-23] MEDS ORDERED: Dicyclomine Hydrochloride 20 MG TAB PO ONE (14:25)
[2024-07-23] MEDS ORDERED: DICYCLOMINE HYD10 MG PO (16:05)
[2024-07-23] MEDS ORDERED: Acetaminophen/Oxycodone 5 MG/325 MG TABLET PO ONE (16:15)
== END 2024-07-23 15:50 | disposition home or self-care (01) ==
LOC: ED 10:21
PROVIDERS: Nurse Practitioner
DX: S39.011A Strain of muscle, fascia and tendon of abdomen, initial encounter (principal); K52.9 Noninfective gastroenteritis and colitis, unspecified; K29.70 Gastritis, unspecified, without bleeding; I10 Essential (primary) hypertension; F32.A Depression, unspecified; Z90.49 Acquired absence of other specified parts of digestive tract; Z90.711 Acquired absence of uterus with remaining cervical stump; Z98.890 Other specified postprocedural states; X50.0XXA Overexertion from strenuous movement or load, initial encounter; Y93.89 Activity, other specified; Y92.89 Other specified places as the place of occurrence of the external cause; Y99.8 Other external cause status

== ENCOUNTER 2024-12-19 07:58 | Emergency (ER) | payer OTHER, MEDICAID ==
[~2024-12-19] VITALS: Ht 162.5 cm; Wt 93.0 kg
[~2024-12-19 07:58] MED LIST changes: +DICYCLOMINE HYD10 MG PO
[2024-12-19] MEDS ORDERED: LORazepam 1 MG TAB PO ONE (08:15)
[2024-12-19] MEDS ORDERED: ATIVAN1 MG PO (09:28)
== END 2024-12-19 09:43 | disposition home or self-care (01) ==
LOC: ED 07:58
DX: F41.9 Anxiety disorder, unspecified (principal); I10 Essential (primary) hypertension; Z79.899 Other long term (current) drug therapy; Z90.49 Acquired absence of other specified parts of digestive tract; Z90.710 Acquired absence of both cervix and uterus; Z98.890 Other specified postprocedural states